=== PATIENT | male | born 1990 | race Two or more races ===

== ENCOUNTER 2023-02-19 12:00 | Emergency (ER) | payer OTHER ==
[~2023-02-19] VITALS: Ht 165.1 cm; Wt 72.7 kg
[2023-02-19 12:27] VITALS: BP 128/78; PULSE 97; RESP 16; TEMP 98.5; O2SAT 100
== END 2023-02-19 14:00 | disposition left against medical advice (07) ==
LOC: ER 12:00
DX: Z53.21 Procedure and treatment not carried out due to patient leaving prior to being seen by health care provider (principal)
CPT/HCPCS: 99281

== ENCOUNTER 2023-03-26 07:25 | Emergency (ER) | payer MEDICAID, OTHER ==
[~2023-03-26] VITALS: Ht 165.1 cm; Wt 66.0 kg
[2023-03-26 07:29] VITALS: BP 152/105; PULSE 84; RESP 18; TEMP 97.5; O2SAT 100
[2023-03-26] MEDS ORDERED: IBUP-2030 PO (07:32)
[2023-03-26] MEDS ORDERED: AMOX1TAB16 PO (07:32)
== END 2023-03-26 07:51 | disposition home or self-care (01) ==
LOC: ER 07:30
DX: K04.7 Periapical abscess without sinus (principal); J45.909 Unspecified asthma, uncomplicated
CPT/HCPCS: 99283

== ENCOUNTER 2023-04-16 09:57 | Emergency (ER) | payer MEDICAID ==
[~2023-04-16] VITALS: Ht 175.3 cm; Wt 68.0 kg
[~2023-04-16 09:57] MED LIST: AMOX1TAB16 PO; IBUP-2030 PO
[2023-04-16 10:02] VITALS: BP 118/82; PULSE 79; RESP 20; TEMP 98.4; O2SAT 99
[2023-04-16] MEDS ORDERED: AMOX1TAB16 MT (10:57)
[2023-04-16] MEDS ORDERED: NAPR500T7 MT (11:06)
== END 2023-04-16 11:34 | disposition home or self-care (01) ==
LOC: ER 10:21
DX: R22.0 Localized swelling, mass and lump, head (principal); K08.89 Other specified disorders of teeth and supporting structures; J45.909 Unspecified asthma, uncomplicated; Z79.899 Other long term (current) drug therapy
CPT/HCPCS: 99281; 99283

== ENCOUNTER 2023-04-21 17:23 | Emergency (ER) | payer MEDICAID ==
[~2023-04-21] VITALS: Ht 165.1 cm; Wt 73.0 kg
[~2023-04-21 17:23] MED LIST changes: +AMOX1TAB16 MT; +NAPR500T7 MT
[2023-04-21 17:25] VITALS: BP 121/67; PULSE 99; RESP 16; TEMP 98.8; O2SAT 100
[2023-04-21] MEDS ORDERED: BACITRACIN ZINC OINT UDPKT TOP ONE (18:15)
[2023-04-21] MEDS ORDERED: TETANUS, DIPHTHERIA, PERTUSSIS VAC/PF 0.5ML (>10YR OLD) IM ONE (18:15)
[2023-04-21] MEDS ORDERED: LIDOCAINE HCL/PF 1% 10 MG/ML 5ML VIAL INFIL ONE (18:15)
[2023-04-21] MEDS ORDERED: BO1 TP (19:33)
[2023-04-21] MEDS ORDERED: AMOX1TAB16 MT (19:33)
== END 2023-04-21 22:51 | disposition home or self-care (01) ==
LOC: ER 17:23
DX: S01.21XA Laceration without foreign body of nose, initial encounter (principal); J45.909 Unspecified asthma, uncomplicated; X58.XXXA Exposure to other specified factors, initial encounter; Y93.89 Activity, other specified; Y92.89 Other specified places as the place of occurrence of the external cause; Y99.8 Other external cause status
CPT/HCPCS: 99285; 70450; 90715; 12013; 90471; J3490

== ENCOUNTER 2023-04-28 22:50 | Emergency (ER) | payer MEDICAID ==
[~2023-04-28 22:50] MED LIST changes: +BO1 TP
[2023-04-28 22:56] VITALS: PULSE 110
== END 2023-04-28 23:14 | disposition home or self-care (01) ==
LOC: ER 22:50
DX: S01.21XD Laceration without foreign body of nose, subsequent encounter (principal); X58.XXXD Exposure to other specified factors, subsequent encounter
CPT/HCPCS: 99281

== ENCOUNTER 2023-05-03 19:54 | Emergency (ER) | payer MEDICAID ==
[~2023-05-03] VITALS: Ht 167.6 cm; Wt 72.0 kg
[2023-05-03 20:52] VITALS: BP 123/77; PULSE 80; RESP 18; TEMP 98; O2SAT 98
== END 2023-05-03 22:59 | disposition home or self-care (01) ==
LOC: ER 19:54
DX: S01.21XD Laceration without foreign body of nose, subsequent encounter (principal); X58.XXXD Exposure to other specified factors, subsequent encounter
CPT/HCPCS: 99281; Z7610

== ENCOUNTER 2023-06-27 17:38 | Emergency (ER) | payer MEDICAID ==
[~2023-06-27] VITALS: Ht 167.6 cm; Wt 72.6 kg
[2023-06-27 17:52] VITALS: BP 128/74; PULSE 95; RESP 16; TEMP 98.2; O2SAT 99
[2023-06-27] MEDS ORDERED: IBUP-2029 MT (18:04)
[2023-06-27] MEDS ORDERED: AMOX1TAB16 MT (18:04)
== END 2023-06-27 19:17 | disposition home or self-care (01) ==
LOC: ER 17:38
DX: T23.202A Burn of second degree of left hand, unspecified site, initial encounter (principal); T79.9XXA Unspecified early complication of trauma, initial encounter; X08.8XXA Exposure to other specified smoke, fire and flames, initial encounter; Y93.89 Activity, other specified; Y92.89 Other specified places as the place of occurrence of the external cause; Y99.8 Other external cause status
CPT/HCPCS: 99283

== ENCOUNTER 2023-08-20 11:32 | Emergency (ER) | payer MEDICAID ==
[~2023-08-20] VITALS: Ht 167.6 cm; Wt 73.0 kg
[~2023-08-20 11:32] MED LIST changes: +IBUP-2029 MT
[2023-08-20 11:48] VITALS: O2SAT 98
[2023-08-20] MEDS ORDERED: KETOROLAC 60MG/2ML VIAL IM ONE (13:00)
[2023-08-20] MEDS ORDERED: NAPR-681 MT (13:59)
[2023-08-20 14:40] VITALS: BP 135/92; PULSE 76; RESP 18; TEMP 98
== END 2023-08-20 14:41 | disposition home or self-care (01) ==
LOC: ER 11:32
DX: M25.561 Pain in right knee (principal); J45.909 Unspecified asthma, uncomplicated; Z79.899 Other long term (current) drug therapy
CPT/HCPCS: 99283; 73564; 96372; J1885

== ENCOUNTER 2023-12-09 12:36 | Emergency (ER) | payer MEDICAID ==
[~2023-12-09] VITALS: Ht 172.7 cm; Wt 82.0 kg
[~2023-12-09 12:36] MED LIST changes: +NAPR-681 MT
[2023-12-09 13:44] VITALS: TEMP 98.3; O2SAT 98
[2023-12-09] MEDS: ACETAMINOPHEN 325MG TABLET PO ONE (14:20)
[2023-12-09] MEDS: BACITRACIN ZINC OINT UDPKT TOP ONE (14:20)
[2023-12-09 15:30] VITALS: BP 139/56; PULSE 69; RESP 17
[2023-12-09] MEDS ORDERED: IBUP-2028 MT (15:31)
[2023-12-09] MEDS ORDERED: NEOM28.37 TP (15:31)
[2023-12-09] MEDS ORDERED: CEPH500C2 MT (15:31)
== END 2023-12-09 20:23 | disposition home or self-care (01) ==
LOC: ER 12:55
DX: S01.512A Laceration without foreign body of oral cavity, initial encounter (principal); S60.512A Abrasion of left hand, initial encounter; S60.511A Abrasion of right hand, initial encounter; J45.909 Unspecified asthma, uncomplicated; Z79.899 Other long term (current) drug therapy; Y08.89XA Assault by other specified means, initial encounter; Y93.89 Activity, other specified; Y92.89 Other specified places as the place of occurrence of the external cause; Y99.8 Other external cause status
CPT/HCPCS: 70486; 71045; 99284

== ENCOUNTER 2024-03-12 14:49 | Emergency (ER) | payer MEDICAID ==
[~2024-03-12] VITALS: Ht 170.2 cm; Wt 72.0 kg
[~2024-03-12 14:49] MED LIST changes: +CEPH500C2 MT; +IBUP-2028 MT; +NEOM28.37 TP
[2024-03-12 14:58] VITALS: O2SAT 99
[2024-03-12] MEDS ORDERED: AMOX1TAB16 MT (17:17)
[2024-03-12 17:38] VITALS: BP 112/88; PULSE 78; RESP 16; TEMP 98.4
[2024-03-12] MEDS ORDERED: AMOXICILLIN/POTASSIUM CLAVULANATE 875/125MG TAB PO ONE (17:45)
[2024-03-12] MEDS ORDERED: ACETAMINOPHEN 325MG TABLET PO ONE (17:45)
== END 2024-03-12 17:44 | disposition home or self-care (01) ==
LOC: ER 14:49
DX: K04.7 Periapical abscess without sinus (principal); J45.909 Unspecified asthma, uncomplicated
CPT/HCPCS: 99283